=== PATIENT | female | born 1950 | race African-American/Black ===

== ENCOUNTER 2021-07-27 12:34 | Outpatient (CLI) | payer OTHER, SELFPAY | END 2021-07-27 12:35 | disposition home or self-care (01) | LOC: ANHAUDIO 12:39 | PROVIDERS: Visit Provider Otolaryngology | DX: H90.3 Sensorineural hearing loss, bilateral (principal) | CPT/HCPCS: 92557; 92567 ==

== ENCOUNTER 2021-12-02 07:46 | Outpatient (RCR) | payer OTHER, SELFPAY | END 2021-12-02 23:59 | disposition home or self-care (01) | LOC: ANHAUDIO 07:46 | PROVIDERS: Visit Provider Otolaryngology | DX: Z46.1 Encounter for fitting and adjustment of hearing aid (principal) | CPT/HCPCS: 99199 ==